=== PATIENT | male | born 1975 | race Hispanic/Latino ===

== ENCOUNTER 2017-03-07 11:24 | Outpatient (CLI) | payer OTHER ==
[2017-03-07] MEDS ORDERED: PROVENTIL IH ONE (11:36)
== END 2017-03-07 11:25 | disposition home or self-care (01) ==
LOC: PF 11:24
PROVIDERS: ATTEND Internal Medicine
DX: J44.9 Chronic obstructive pulmonary disease, unspecified (principal); F31.89 Other bipolar disorder; F20.9 Schizophrenia, unspecified; I11.9 Hypertensive heart disease without heart failure; M54.2 Cervicalgia; M54.5 Low back pain
CPT/HCPCS: 94060; 94640